=== PATIENT | female | born 1995 | race Two or more races ===

== ENCOUNTER 2024-03-28 18:12 | Emergency (ER) | payer OTHER ==
[~2024-03-28] VITALS: Ht 167.6 cm; Wt 165.6 kg
[2024-03-28] MEDS ORDERED: ADDERALL 30 MG30 MG (18:32)
[2024-03-28] MEDS ORDERED: CITALOPRAM HBR40 MG (18:33)
[2024-03-28] MEDS ORDERED: KETOROLAC TROMETHAMINE 60 MG VIAL IM STA (18:45)
[2024-03-28] MEDS ORDERED: KETOROLAC TROMETHAMINE 60 MG VIAL IM ONE (18:55)
== END 2024-03-28 20:16 | disposition home or self-care (01) ==
LOC: ER 18:14
DX: S82.041A Displaced comminuted fracture of right patella, initial encounter for closed fracture (principal); Y93.01 Activity, walking, marching and hiking; Y93.9 Activity, unspecified; Y92.9 Unspecified place or not applicable; Y99.9 Unspecified external cause status
CPT/HCPCS: 73560; 96372; 99283; J1885